=== PATIENT | female | born 1975 | race Caucasian/White ===

== ENCOUNTER 2018-12-06 11:54 | Emergency (ER) | payer BC, MEDICAID ==
[~2018-12-06] VITALS: Ht 162.6 cm; Wt 92.0 kg
[2018-12-06 15:18] VITALS: BP 136/94
== END 2018-12-06 15:21 | disposition home or self-care (01) ==
LOC: EDBD 11:54 → ED 15:15
DX: I10 Essential (primary) hypertension (principal); J45.909 Unspecified asthma, uncomplicated; F17.200 Nicotine dependence, unspecified, uncomplicated; R00.0 Tachycardia, unspecified; R07.89 Other chest pain
CPT/HCPCS: 36415; 71046; 80048; 82040; 84484; 85025; 93005; 99284

== ENCOUNTER 2019-12-05 17:50 | Emergency (ER) | payer BC, MEDICAID ==
[~2019-12-05] VITALS: Ht 162.6 cm; Wt 103.0 kg
[~2019-12-05 17:50] MED LIST: GABA300C10 PO; LISI-167 PO; MINO50CA3 PO; OMEP20TA62 PO; THIA100T67 PO; VENL75CA6 PO
[2019-12-05] MEDS ORDERED: SODIUM CHLORIDE 0.9% 1,000ML IVBOLUS ONE (18:30)
[2019-12-05] MEDS ORDERED: SODIUM CHLORIDE FLUSH 10ML SYR IVF ONE (18:30)
[2019-12-05 18:44] LABS: BASOPHILS # (AUTO) 0.01 x10^3/uL (0-0.1); BASOPHILS % (AUTO) 0 % (0-1); EOSINOPHILS % (AUTO) 2 % (1-7); LYMPHOCYTES # (AUTO) 2.63 x10^3/uL (1-3.4); LYMPHOCYTES % (AUTO) 38 % (22-44); MD NO; MEAN CORPUSCULAR HEMOGLOBIN 29.4 pg (27.0-34.8); MEAN CORPUSCULAR HGB CONC 34.6 g/dL (32.4-35.8); MONOCYTES # (AUTO) 0.56 x10^3/uL (0.2-0.8); MONOCYTES % (AUTO) 8 % (2-9); NEUTROPHILS # (AUTO) 3.53 x10^3/uL (1.8-6.8); NEUTROPHILS % (AUTO) 52 % (42-75); PLATELET COUNT 359 x10^3/uL (130-400); RED BLOOD COUNT 4.52 x10^6/uL (3.82-5.3); RED CELL DISTRIBUTION WIDTH 17.4 % (9.6-15.2)
[2019-12-05 18:52] LABS: ALBUMIN 3.2 g/dL (3.4-5.0); ANION GAP 8 mmol/L (5-15); CALCIUM 7.7 mg/dL (8.5-10.1); CHLORIDE 110 mmol/L (98-107); CREATININE 0.84 mg/dL (0.55-1.02)
[2019-12-05 18:55] LABS: ALKALINE PHOSPHATASE 120 U/L (45-117); BILIRUBIN,TOTAL 0.3 mg/dL (0.2-1.0)
--- NOTE | 2019-12-05 19:00 | NUR ---
PIV INSERTED AND FLUIDS ADMINISTERED PER EMAR, PT RESTING COMFORTABLY IN [facility] WITH NO FURTHER REQUESTS AT THIS TIME
[2019-12-05 19:13] LABS: ALANINE AMINOTRANSFERASE 28 U/L (12-78)
[2019-12-05 19:14] LABS: TOTAL PROTEIN 7.4 g/dL (6.4-8.2)
[2019-12-05 20:24] VITALS: BP 152/89
== END 2019-12-05 20:58 | disposition home or self-care (01) ==
LOC: ED 20:52
DX: T22.211A Burn of second degree of right forearm, initial encounter (principal); T21.21XA Burn of second degree of chest wall, initial encounter; R06.00 Dyspnea, unspecified; Z20.828 Contact with and (suspected) exposure to other viral communicable diseases; R53.83 Other fatigue; R00.0 Tachycardia, unspecified; T31.0 Burns involving less than 10% of body surface; X10.1XXA Contact with hot food, initial encounter; Y93.89 Activity, other specified; Y92.89 Other specified places as the place of occurrence of the external cause; Y99.8 Other external cause status; J45.909 Unspecified asthma, uncomplicated; I10 Essential (primary) hypertension
CPT/HCPCS: 36415; 71045; 80053; 83880; 85025; 87635; 93005; 96360; 99285; J7030

== ENCOUNTER 2019-12-08 14:40 | Inpatient (IN) | payer MEDICAID ==
[~2019-12-08] VITALS: Ht 162.6 cm; Wt 99.3 kg
[2019-12-08] MEDS ORDERED: CHOL10003 PO (15:15)
[2019-12-08] MEDS ORDERED: ZOLP10TA PO (15:16)
[2019-12-08 15:47] LABS: BASOPHILS # (AUTO) 0.03 x10^3/uL (0-0.1); BASOPHILS % (AUTO) 0 % (0-1); EOSINOPHILS # (AUTO) 0.16 x10^3/uL (0-0.4); EOSINOPHILS % (AUTO) 2 % (1-7); LYMPHOCYTES # (AUTO) 1.57 x10^3/uL (1-3.4); LYMPHOCYTES % (AUTO) 19 % (22-44); MD NO; MEAN CORPUSCULAR HEMOGLOBIN 28.1 pg (27.0-34.8); MEAN CORPUSCULAR HGB CONC 32.7 g/dL (32.4-35.8); MEAN CORPUSCULAR VOLUME 85.9 fL (80-100); MEAN PLATELET VOLUME 7.2 fL (7.4-10.4); MONOCYTES # (AUTO) 0.63 x10^3/uL (0.2-0.8); MONOCYTES % (AUTO) 8 % (2-9); NEUTROPHILS # (AUTO) 5.88 x10^3/uL (1.8-6.8); NEUTROPHILS % (AUTO) 71 % (42-75); PLATELET COUNT 320 x10^3/uL (130-400); RED BLOOD COUNT 4.24 x10^6/uL (3.82-5.3); RED CELL DISTRIBUTION WIDTH 17.6 % (9.6-15.2)
[2019-12-08 15:49] LABS: MICROSCOPIC AUTO
[2019-12-08 15:57] LABS: ALANINE AMINOTRANSFERASE 23 U/L (12-78); ALBUMIN 3.4 g/dL (3.4-5.0); ANION GAP 5 mmol/L (5-15); CALCIUM 8.5 mg/dL (8.5-10.1); CHLORIDE 109 mmol/L (98-107); CREATININE 0.82 mg/dL (0.55-1.02)
[2019-12-08 15:58] LABS: AMPHETAMINE SCREEN, URINE Negative (Negative); BARBITURATE SCREEN, URINE Negative (Negative); BENZODIAZEPINE SCREEN, URINE Negative (Negative); CANNABINOID SCREEN, URINE Negative (Negative); COCAINE SCREEN, URINE Negative (Negative); METHADONE SCREEN, URINE Negative (Negative); OPIATE SCREEN, URINE Negative (Negative)
[2019-12-08 15:59] LABS: ALKALINE PHOSPHATASE 90 U/L (45-117); BILIRUBIN,TOTAL 0.4 mg/dL (0.2-1.0); TOTAL PROTEIN 7.8 g/dL (6.4-8.2)
[2019-12-08] MEDS ORDERED: ACETAMINOPHEN 325 MG TABLET PO ONE (16:00)
[2019-12-08] MEDS ORDERED: ACETAMINOPHEN 325 MG TABLET ONE (16:06)
--- NOTE | 2019-12-08 16:08 | NUR ---
PT MEDICATED WITH TYLENOL FOR HEADACHE.
[2019-12-08] MEDS ORDERED: LABETALOL 5MG/ML, 20ML IVPush STA (17:31)
[2019-12-08] MEDS ORDERED: LABETALOL 5MG/ML, 20ML ONE (17:34)
[2019-12-08] MEDS ORDERED: LABETALOL 5MG/ML, 20ML IVPush ONE (18:00)
[2019-12-08 18:14] LABS: INTERNATIONAL NORMALIZED RATIO 0.89 (0.93-1.1); PROTHROMBIN TIME 9.2 Seconds (9.6-11.5)
[2019-12-08] MEDS: SODIUM CHLORIDE 0.9% 1,000 ML IV SCH (18:29)
[2019-12-08] MEDS ORDERED: ONDANSETRON 2MG/ML, 2ML IVPush PRN (18:30)
[2019-12-08] MEDS ORDERED: LABETALOL 5MG/ML, 20ML IVPush PRN (18:30)
--- NOTE | 2019-12-08 18:58 | NUR ---
REPORT FROM [facility] ASSUMING CARE
--- NOTE | 2019-12-08 19:00 | NUR ---
HOSPITALIST AT BEDSIDE TO ADMIT PT AT THIS TIME
--- NOTE | 2019-12-08 19:26 | NUR ---
PT SITTING ON GURNEY TALKING ON PHONE LAUGHING AND OVERALL PLEASANT AFFECT. NEURO INTACT NO DEFICITS NOTED. PT A/O 4 EXPRESSES NO NEEDS AT THIS TIME
[2019-12-08] MEDS ORDERED: ICN LORazepam 0.2 MG/ML IV IV PRN (19:30)
--- NOTE | 2019-12-08 19:46 | NUR ---
REPORT TO [facility] FOR TRANSPORT TO ROOM [phone]
[2019-12-08 20:29] VITALS: BP 142/77
[2019-12-08] MEDS ORDERED: LORazepam 2 MG/ML, 1ML IVPush PRN ×2 (20:30→21:30)
[2019-12-08] MEDS: LEVETIRACETAM 500 MG in SODIUM CHLORIDE 0.9% 100 ML IV SCH (21:13)
[2019-12-08] MEDS ORDERED: LORazepam 2 MG/ML, 1ML IVPush ONE (21:30)
[2019-12-08] MEDS: ACETAMINOPHEN 325 MG TABLET PO PRN (23:05)
[2019-12-09 04:11] VITALS: BP 138/94
[2019-12-09 04:48] LABS: BASOPHILS # (AUTO) 0.02 x10^3/uL (0-0.1); BASOPHILS % (AUTO) 0 % (0-1); EOSINOPHILS # (AUTO) 0.08 x10^3/uL (0-0.4); EOSINOPHILS % (AUTO) 1 % (1-7); LYMPHOCYTES # (AUTO) 1.74 x10^3/uL (1-3.4); LYMPHOCYTES % (AUTO) 21 % (22-44); MD NO; MEAN CORPUSCULAR HGB CONC 32.2 g/dL (32.4-35.8); MEAN CORPUSCULAR VOLUME 86.9 fL (80-100); MONOCYTES # (AUTO) 0.71 x10^3/uL (0.2-0.8); MONOCYTES % (AUTO) 9 % (2-9); NEUTROPHILS # (AUTO) 5.81 x10^3/uL (1.8-6.8); NEUTROPHILS % (AUTO) 70 % (42-75); PLATELET COUNT 286 x10^3/uL (130-400); RED BLOOD COUNT 3.93 x10^6/uL (3.82-5.3); RED CELL DISTRIBUTION WIDTH 17.8 % (9.6-15.2)
[2019-12-09 04:57] LABS: ANION GAP 4 mmol/L (5-15); CALCIUM 8.4 mg/dL (8.5-10.1); CHLORIDE 110 mmol/L (98-107); CREATININE 0.68 mg/dL (0.55-1.02)
[2019-12-09] MEDS: ACETAMINOPHEN 325 MG TABLET PO PRN (05:12)
[2019-12-09] MEDS: OMEPRAZOLE 20 MG CAPSULE.DR PO SCH (07:58)
[2019-12-09] MEDS: SENNA/DOCUSATE TABLET PO SCH (07:58)
[2019-12-09] MEDS: LISINOPRIL 10 MG TABLET PO SCH (07:58)
[2019-12-09] MEDS: LEVETIRACETAM 500 MG in SODIUM CHLORIDE 0.9% 100 ML IV SCH ×2 (07:58→21:02)
[2019-12-09] MEDS: FOLIC ACID 1 MG TABLET PO SCH (09:20)
[2019-12-09] MEDS: MULTIVITAMIN 1 TABLET PO SCH (09:20)
[2019-12-09] MEDS: THIAMINE 100MG TABLET PO SCH ×2 (09:20→21:02)
[2019-12-09] MEDS: SODIUM CHLORIDE 0.9% 1,000 ML IV SCH (14:29)
[2019-12-09] MEDS ORDERED: CEFTRIAXONE PMX 1GM/50ML 50 ML IV SCH (18:00)
[2019-12-10 04:00] VITALS: BP 143/82
[2019-12-10 04:55] LABS: ALANINE AMINOTRANSFERASE 20 U/L (12-78); ANION GAP 7 mmol/L (5-15); CALCIUM 8.7 mg/dL (8.5-10.1); CHLORIDE 110 mmol/L (98-107); CREATININE 0.65 mg/dL (0.55-1.02)
[2019-12-10 04:57] LABS: ALKALINE PHOSPHATASE 75 U/L (45-117); BILIRUBIN,TOTAL 0.3 mg/dL (0.2-1.0); CREATINE KINASE, TOTAL 132 U/L (26-192); TOTAL PROTEIN 6.8 g/dL (6.4-8.2)
[2019-12-10 04:58] LABS: BASOPHILS # (AUTO) 0.06 x10^3/uL (0-0.1); BASOPHILS % (AUTO) 1 % (0-1); EOSINOPHILS # (AUTO) 0.13 x10^3/uL (0-0.4); EOSINOPHILS % (AUTO) 2 % (1-7); LYMPHOCYTES # (AUTO) 1.93 x10^3/uL (1-3.4); LYMPHOCYTES % (AUTO) 33 % (22-44); MD NO; MEAN CORPUSCULAR HEMOGLOBIN 28.1 pg (27.0-34.8); MEAN CORPUSCULAR HGB CONC 32.5 g/dL (32.4-35.8); MEAN CORPUSCULAR VOLUME 86.6 fL (80-100); MEAN PLATELET VOLUME 7.2 fL (7.4-10.4); MONOCYTES # (AUTO) 0.53 x10^3/uL (0.2-0.8); MONOCYTES % (AUTO) 9 % (2-9); NEUTROPHILS % (AUTO) 55 % (42-75); PLATELET COUNT 292 x10^3/uL (130-400); RED CELL DISTRIBUTION WIDTH 17.6 % (9.6-15.2)
[2019-12-10 08:00] VITALS: BP 140/72
[2019-12-10] MEDS: SENNA/DOCUSATE TABLET PO SCH (08:45)
[2019-12-10] MEDS: MULTIVITAMIN 1 TABLET PO SCH (08:52)
[2019-12-10] MEDS: FOLIC ACID 1 MG TABLET PO SCH (08:53)
[2019-12-10] MEDS: THIAMINE 100MG TABLET PO SCH (08:53)
[2019-12-10] MEDS: LEVETIRACETAM 500 MG in SODIUM CHLORIDE 0.9% 100 ML IV SCH (08:53)
[2019-12-10] MEDS: LISINOPRIL 10 MG TABLET PO SCH (08:53)
[2019-12-10] MEDS: OMEPRAZOLE 20 MG CAPSULE.DR PO SCH (08:53)
[2019-12-10] MEDS ORDERED: VENLAFAXINE 75 MG CAP ER PO SCH (09:00)
[2019-12-10] MEDS ORDERED: SILVER SULF. CRM 1% , 25GM TP SCH (11:30)
== END 2019-12-10 12:36 | disposition left against medical advice (07) | DRG 83 ==
LOC: ED 15:36 → EDIP 18:32 → CCU 19:53
PROVIDERS: ADMIT Family Medicine; ATTEND Internal Medicine
DX: S06.5X9A Traumatic subdural hemorrhage with loss of consciousness of unspecified duration, initial encounter (principal); F10.239 Alcohol dependence with withdrawal, unspecified; D64.9 Anemia, unspecified; F32.9 Major depressive disorder, single episode, unspecified; F41.9 Anxiety disorder, unspecified; I10 Essential (primary) hypertension; J45.909 Unspecified asthma, uncomplicated; R32 Unspecified urinary incontinence; R56.9 Unspecified convulsions; E66.9 Obesity, unspecified; S02.119A Unspecified fracture of occiput, initial encounter for closed fracture; Z79.899 Other long term (current) drug therapy; Z87.891 Personal history of nicotine dependence; Z68.37 Body mass index [BMI] 37.0-37.9, adult; Z88.1 Allergy status to other antibiotic agents
CPT/HCPCS: 36415; 70450; 80048; 80053; 80307; 81001; 82550; 83605; 83735; 84100; 85025; 85347; 85384; 85576; 85610; 85730; 87081; 87086; 93005; 96374; G0378; J0696; J1953; J2060; J7030

== ENCOUNTER → 2019-12-18 | Outpatient (CLI) | payer MEDICAID ==
[~2019-12-18] MED LIST changes: +CHOL10003 PO; +ZOLP10TA PO
== END | disposition home or self-care (01) ==
LOC: CFH 10:54
PROVIDERS: ATTEND Registered Nurse
DX: S00.03XA Contusion of scalp, initial encounter (principal); S06.4X9A Epidural hemorrhage with loss of consciousness of unspecified duration, initial encounter; S02.121A Fracture of orbital roof, right side, initial encounter for closed fracture; X58.XXXA Exposure to other specified factors, initial encounter; Y93.89 Activity, other specified; Y92.89 Other specified places as the place of occurrence of the external cause; Y99.8 Other external cause status
CPT/HCPCS: 70450

== ENCOUNTER → 2020-01-03 | Outpatient (CLI) | payer MEDICAID | END | disposition home or self-care (01) | LOC: CFH 10:52 | PROVIDERS: ATTEND Registered Nurse | DX: S06.4X9A Epidural hemorrhage with loss of consciousness of unspecified duration, initial encounter (principal); X58.XXXA Exposure to other specified factors, initial encounter; Y93.89 Activity, other specified; Y92.89 Other specified places as the place of occurrence of the external cause; Y99.8 Other external cause status | CPT/HCPCS: 70450 ==

== ENCOUNTER → 2020-01-03 | Outpatient (CLI) | payer MEDICAID | END | disposition home or self-care (01) | LOC: CVU 06:55 | PROVIDERS: ATTEND Internal Medicine Cardiovascular Disease | DX: I08.8 Other rheumatic multiple valve diseases (principal); I10 Essential (primary) hypertension | CPT/HCPCS: 93306; 93356 ==